=== PATIENT | female | born 1975 | race Two or more races ===

== ENCOUNTER 2017-11-08 11:54 | Emergency (ER) | payer OTHER ==
[~2017-11-08] VITALS: Ht 165.1 cm; Wt 64.0 kg
== END 2017-11-08 14:53 | disposition home or self-care (01) ==
LOC: ER 11:54
DX: K29.70 Gastritis, unspecified, without bleeding (principal); J11.1 Influenza due to unidentified influenza virus with other respiratory manifestations; N39.0 Urinary tract infection, site not specified

== ENCOUNTER 2022-05-05 08:25 | Emergency (ER) | payer OTHER ==
[~2022-05-05] VITALS: Ht 165.1 cm; Wt 66.2 kg
[2022-05-05] MEDS ORDERED: KETO10TA2 PO (15:13)
[2022-05-05] MEDS ORDERED: CIPRO500 MG PO (15:13)
== END 2022-05-05 15:42 | disposition home or self-care (01) ==
LOC: ER 08:25
DX: N39.0 Urinary tract infection, site not specified (principal)

== ENCOUNTER 2022-05-11 09:44 | Outpatient (CLI) | payer OTHER ==
[~2022-05-11 09:44] MED LIST: CIPRO500 MG PO; KETO10TA2 PO
== END 2022-05-11 09:46 | disposition home or self-care (01) ==
LOC: LAB 09:44
PROVIDERS: ATTEND Urology
DX: N20.1 Calculus of ureter (principal); R31.0 Gross hematuria; M05.80 Other rheumatoid arthritis with rheumatoid factor of unspecified site

== ENCOUNTER 2022-05-19 06:18 | Day surgery (SDC) | payer OTHER ==
[~2022-05-19 06:18] MED LIST changes: +[UNRECOGNIZED DRUG - OTHER] PO
== END 2022-05-19 15:05 | disposition home or self-care (01) ==
LOC: CIR.AMB 06:18
PROVIDERS: ATTEND Urology
DX: N20.1 Calculus of ureter (principal); Z20.822 Contact with and (suspected) exposure to COVID-19

== ENCOUNTER 2022-05-26 08:44 | Outpatient (CLI) | payer OTHER | END 2022-05-26 08:53 | disposition home or self-care (01) | LOC: RAD 08:44 | PROVIDERS: ATTEND Urology | DX: N20.1 Calculus of ureter (principal) ==

== ENCOUNTER 2022-06-15 08:37 | Outpatient (CLI) | payer OTHER | END 2022-06-15 08:47 | disposition home or self-care (01) | LOC: RAD 08:37 | PROVIDERS: ATTEND Urology | DX: N20.0 Calculus of kidney (principal); N20.1 Calculus of ureter ==

== ENCOUNTER 2022-06-24 08:30 | Outpatient (CLI) | payer OTHER | END 2022-06-24 08:38 | disposition home or self-care (01) | LOC: RAD 08:30 | PROVIDERS: ATTEND Urology | DX: N20.0 Calculus of kidney (principal) ==

== ENCOUNTER 2022-07-08 09:29 | Outpatient (CLI) | payer OTHER | END 2022-07-08 09:36 | disposition home or self-care (01) | LOC: RAD 09:29 | PROVIDERS: ATTEND Urology | DX: N20.1 Calculus of ureter (principal) ==

== ENCOUNTER 2022-08-09 08:39 | Outpatient (CLI) | payer OTHER | END 2022-08-09 08:48 | disposition home or self-care (01) | LOC: RAD 08:39 | PROVIDERS: ATTEND Urology | DX: N20.1 Calculus of ureter (principal) ==

== ENCOUNTER 2022-09-17 07:53 | Outpatient (CLI) | payer OTHER | END 2022-09-17 08:01 | disposition home or self-care (01) | LOC: SONOGRAMA 07:53 | PROVIDERS: ATTEND Urology | DX: N20.0 Calculus of kidney (principal); N20.1 Calculus of ureter ==

== ENCOUNTER → 2022-11-30 08:45 | Outpatient (CLI) | payer OTHER | END | disposition home or self-care (01) | LOC: LAB 08:45 | PROVIDERS: ATTEND Urology | DX: N20.0 Calculus of kidney (principal); N20.1 Calculus of ureter ==

== ENCOUNTER 2023-05-02 08:50 | Outpatient (CLI) | payer OTHER | END 2023-05-02 08:57 | disposition home or self-care (01) | LOC: SONOGRAMA 08:50 | PROVIDERS: ATTEND Urology | DX: N20.0 Calculus of kidney (principal); N20.1 Calculus of ureter ==

== ENCOUNTER 2023-05-03 08:19 | Outpatient (CLI) | payer OTHER | END 2023-05-03 08:29 | disposition home or self-care (01) | LOC: RAD 08:19 | PROVIDERS: ATTEND Urology | DX: N20.0 Calculus of kidney (principal) ==

== ENCOUNTER 2023-07-18 08:17 | Emergency (ER) | payer OTHER ==
[~2023-07-18] VITALS: Ht 165.1 cm; Wt 65.8 kg
[2023-07-18] MEDS ORDERED: METROTEXATE (08:53)
[2023-07-18] MEDS ORDERED: FAMOTIDINE/PF 20 MG in 0.9 % SODIUM CHLORIDE 8 ML IV PUSH STA (09:01)
[2023-07-18] MEDS ORDERED: METRONIDAZOLE/SODIUM CHLORIDE 500 MG/100 ML PIGGYBACK IV ONE (09:15)
[2023-07-18] MEDS ORDERED: 0.9 % SODIUM CHLORIDE 1,000 ML IV SCH (09:15)
[2023-07-18] MEDS ORDERED: DIPHENOXYLATE HCL/ATROPINE 1 UDTAB TABLET PO ONE (09:15)
[2023-07-18 09:48] LABS: HEMATOCRIT 37.5 % (36.0-45.00); HEMOGLOBIN 12.9 g/dL (12.0-15.00); MEAN CELL VOLUME 89.9 fL (80.00-100.00); MEAN CORPUSCULAR HEMOGLOBIN 30.9 pg (27.00-32.0); MEAN CORPUSCULAR HGB CONC 34.4 g/dl (32.0-36.0); PLATELET COUNT 287 K/uL (150-450); RED BLOOD COUNT 4.17 M/uL (4.00-6.00); RED CELL DISTRIBUTION WIDTH 13.3 % (11.5-14.5)
[2023-07-18 11:10] LABS: ALBUMIN 2.9 gm/dL (3.4-5.0); BILIRUBIN TOTAL 0.31 mg/dL (0.3-1.2); CALCIUM 8.9 mg/dL (8.5-10.1); CREATININE SERUM 1.03 mg/dL (0.55-1.02); GFR 57.44; GLOBULINA 4.4 G/DL (2.4-3.5); POTASSIUM 3.75 mEq/L (3.5-5.1); TOTAL PROTEIN 7.3 gm/dL (6.4-8.2)
[2023-07-18] MEDS ORDERED: METRONIDAZOLE500 MG PO (12:20)
[2023-07-18] MEDS ORDERED: PEPCID AC20 MG PO (12:20)
[2023-07-18] MEDS ORDERED: INTESTINEX680 M1 PO (12:20)
== END 2023-07-18 12:21 | disposition home or self-care (01) ==
LOC: ER 08:17
PROVIDERS: General Practice
DX: R19.7 Diarrhea, unspecified (principal); M06.8A Other specified rheumatoid arthritis, other specified site

== ENCOUNTER 2024-04-04 08:29 | Outpatient (CLI) | payer OTHER ==
[~2024-04-04 08:29] MED LIST changes: +INTESTINEX680 M1 PO; +METRONIDAZOLE500 MG PO; +METROTEXATE; +PEPCID AC20 MG PO
== END 2024-04-04 08:36 | disposition home or self-care (01) ==
LOC: RAD 08:29
PROVIDERS: ATTEND Urology
DX: N20.0 Calculus of kidney (principal)

== ENCOUNTER 2024-05-02 09:25 | Outpatient (CLI) | payer OTHER | END 2024-05-02 09:34 | disposition home or self-care (01) | LOC: TOM 09:25 | PROVIDERS: ATTEND Urology | DX: N20.0 Calculus of kidney (principal) ==